=== PATIENT | male | born 1955 | race Caucasian/White ===

== ENCOUNTER → 2017-11-24 | Outpatient (CLI) | payer OTHER | LOC: COL.RAD 07:26 | DX: R51 Headache (principal) | CPT/HCPCS: A9585 ==

== ENCOUNTER → 2019-12-28 | Outpatient (CLI) | payer OTHER | LOC: COL.RAD 11:21 | DX: R59.0 Localized enlarged lymph nodes (principal) ==

== ENCOUNTER 2021-04-21 07:00 | Day surgery (SDC) | payer OTHER ==
[~2021-04-21] VITALS: Ht 167.6 cm; Wt 79.0 kg
[2021-04-21] MEDS ORDERED: PRIL40 PO (07:46)
[2021-04-21 07:47] VITALS: BP 110/76; PULSE 55; TEMP 97
[2021-04-21 08:50] VITALS: BP 98/59; PULSE 59; TEMP 97
[2021-04-21 09:05] VITALS: BP 110/76; PULSE 55
[2021-04-21 09:20] VITALS: BP 105/68; PULSE 58
--- NOTE | 2021-04-21 09:42 | NUR ---
0850- Pt retuned to [facility] via cart. Transfered to chair with RN assist. Postop vital started. Coffee and toast provided. Report ercieved from DRU Tsang. 0900- Vitals WNL. Pt tolerating food andrink well. Request to be discharged. Educated patient on criteria needed to be discharged. 0915- Vitals WNL. IV removed without complication. Instructed to dress and wait for to come speak with pt. 0940- Reviewed edcation material and instructions, answered questions to pt satisfaction. Transfered pt to personal vehicle to be driven home by .
== END 2021-04-21 09:40 | disposition home or self-care (01) ==
LOC: SDCO 07:00
DX: K22.70 Barrett's esophagus without dysplasia (principal); K21.9 Gastro-esophageal reflux disease without esophagitis; K44.9 Diaphragmatic hernia without obstruction or gangrene; J45.909 Unspecified asthma, uncomplicated; Z79.899 Other long term (current) drug therapy
CPT/HCPCS: J2704; J7120

== ENCOUNTER → 2021-12-08 | Outpatient (CLI) | payer MEDICARE, OTHER ==
[~2021-12-08] MED LIST: PRIL40 PO
== END ==
LOC: COL.RAD 09:52
DX: Z13.6 Encounter for screening for cardiovascular disorders (principal); K80.20 Calculus of gallbladder without cholecystitis without obstruction; F17.210 Nicotine dependence, cigarettes, uncomplicated

== ENCOUNTER → 2022-01-04 | Outpatient (CLI) | payer MEDICARE, OTHER | LOC: COL.RAD 07:26 | DX: K80.20 Calculus of gallbladder without cholecystitis without obstruction (principal); K76.89 Other specified diseases of liver; N28.1 Cyst of kidney, acquired; L92.9 Granulomatous disorder of the skin and subcutaneous tissue, unspecified; K44.9 Diaphragmatic hernia without obstruction or gangrene | CPT/HCPCS: Q9967 ==